=== PATIENT | female | born 1990 | race Caucasian/White ===

== ENCOUNTER 2018-09-08 15:34 | Outpatient (CLI) | payer OTHER ==
[2018-09-08] MEDS ORDERED: ASA81 MG PO (17:19)
[2018-09-08] MEDS ORDERED: PRENATAL FORMU1 EAC1 PO (17:19)
== END 2018-09-09 10:00 | disposition home or self-care (01) ==
LOC: OBS/DEL 15:34
DX: O26.893 Other specified pregnancy related conditions, third trimester (principal); K52.89 Other specified noninfective gastroenteritis and colitis; Z34.83 Encounter for supervision of other normal pregnancy, third trimester; O35.8XX0 Maternal care for other (suspected) fetal abnormality and damage, not applicable or unspecified

== ENCOUNTER 2018-11-17 05:28 | Inpatient (IN) | payer OTHER ==
[~2018-11-17] VITALS: Ht 157.5 cm; Wt 77.6 kg
[~2018-11-17 05:28] MED LIST: ASA81 MG PO; PRENATAL FORMU1 EAC1 PO
[2018-11-17] MEDS ORDERED: PRENATAL TABLE1 EAC1 PO (06:03)
== END 2018-11-19 10:04 | disposition home or self-care (01) | DRG 807 ==
LOC: LDR 05:28 → O/R 14:04 → OB/GYN 14:43
PROVIDERS: ADMIT Obstetrics & Gynecology
PROC: 10D17Z9 Manual Extraction of Products of Conception, Retained, Via Natural or Artificial Opening (ICD-10-PCS; 2018-11-17)
PROC: 10907ZC Drainage of Amniotic Fluid, Therapeutic from Products of Conception, Via Natural or Artificial Opening (ICD-10-PCS; 2018-11-17)
PROC: 3E0P7VZ Introduction of Hormone into Female Reproductive, Via Natural or Artificial Opening (ICD-10-PCS; 2018-11-17)
PROC: 3E033VJ Introduction of Other Hormone into Peripheral Vein, Percutaneous Approach (ICD-10-PCS; 2018-11-17)
PROC: 4A1HXCZ Monitoring of Products of Conception, Cardiac Rate, External Approach (ICD-10-PCS; 2018-11-17)
PROC: 10E0XZZ Delivery of Products of Conception, External Approach (ICD-10-PCS; principal; 2018-11-17 13:00)
DX: O80 Encounter for full-term uncomplicated delivery (principal); Z37.0 Single live birth; O73.0 Retained placenta without hemorrhage; Z3A.39 39 weeks gestation of pregnancy; Z22.330 Carrier of Group B streptococcus

== ENCOUNTER 2022-05-28 06:44 | Day surgery (SDC) | payer OTHER ==
[~2022-05-28 06:44] MED LIST changes: +PRENATAL TABLE1 EAC1 PO
== END 2022-05-28 12:32 | disposition home or self-care (01) ==
LOC: CIR.AMB 06:44
PROVIDERS: ATTEND Obstetrics & Gynecology
DX: R10.2 Pelvic and perineal pain (principal); N70.91 Salpingitis, unspecified; Z20.822 Contact with and (suspected) exposure to COVID-19

== ENCOUNTER 2025-03-01 09:00 | Day surgery (SDC) | payer OTHER ==
[2025-02-26 07:48] LABS: BASO % 0.3 % (0.1-1.2); EOS # 0.15 (0.04-0.54); EOS % 2.0 % (0.7-7.0); LYMPH # 3.15 (1.18-3.74); LYMPH % 43.0 % (19.3-53.1); MEAN PLATELET VOLUME 10.60 fl (9.4-12.4); MONO # 0.55 (0.24-0.82); MONO % 7.5 % (4.7-12.5); NEUT # 3.43 (1.56-6.13); NEUT % 46.9 % (34.0-71.1); RED CELL DISTRIBUTION WIDTH 18.2 % (11.6-14.4)
[2025-02-26 07:59] LABS: URINE APPEARANCE Clear; URINE BILIRRUBIN Negative (NEGATIVE); URINE BLOOD Negative; URINE COLOR Yellow; URINE GLUCOSE Negative (NEGATIVE); URINE KETONE Negative (NEGATIVE); URINE LEUKOCYTE Negative; URINE NITRATE Negative; URINE PROTEIN Negative (NEGATIVE); URINE UROBILINOGEN 0.2 E.U./dl
[2025-02-26 08:00] LABS: URINE BACTERIA 100.7 uL (0.0-1933); URINE EPITHELIAL CELLS 5.6 uL (0.0-38.8); URINE WBC 3.8 uL (0.0-23.2)
[2025-02-26 08:12] VITALS: BP 132/90
[2025-02-26 08:22] LABS: INR 1.07
[2025-02-26 08:23] LABS: URINE CAST 0.00 uL (0.0-1.40); URINE RBC 1.9 uL (0.0-20.8)
[2025-02-26 08:31] LABS: ALT/SGPT 17.0 U/L (12-78); AST/SGOT 12.0 U/L (15-37); BILIRUBIN TOTAL 0.4 mg/dL (0.3-1.2); BUN CREA RATIO 16.0 (7.0-25.0); CREATININE SERUM 0.69 mg/dL (0.55-1.02); GFR 97.39; GLOBULINA 3.9 G/DL (2.4-3.5); GLUCOSE FASTING 100.0 mg/dL (65-100); OSMOLALITY SERUM 279.0 MOSM/KG (275-295)
[~2025-03-01] VITALS: Ht 157.5 cm; Wt 59.0 kg
[2025-03-01] MEDS ORDERED: POVIDONE-IODINE 118 ML BOTT TOP ONE (09:56)
[2025-03-01] MEDS ORDERED: ONDANSETRON HCL 2 MG/ML VIAL IV ONE (12:15)
[2025-03-01] MEDS ORDERED: KETOROLAC TROMETHAMINE 30 MG VIAL IV ONE (12:15)
[2025-03-01] MEDS ORDERED: KETOROLAC TROMETHAMINE 30 MG VIAL ONE (14:20)
== END 2025-03-01 16:45 | disposition home or self-care (01) ==
LOC: CIR.AMB 09:00
PROVIDERS: ATTEND Obstetrics & Gynecology
DX: N84.0 Polyp of corpus uteri (principal); N93.8 Other specified abnormal uterine and vaginal bleeding